=== PATIENT | male | born 1995 | race Two or more races ===

== ENCOUNTER 2017-12-03 02:08 | Emergency (ER) | payer OTHER ==
[~2017-12-03] VITALS: Ht 172.7 cm; Wt 68.0 kg
[2017-12-03] MEDS ORDERED: KETO10TA2 PO (09:32)
[2017-12-03] MEDS ORDERED: ZANTAC150 MG PO (09:32)
[2017-12-03] MEDS ORDERED: CIPRO500 MG PO (09:32)
== END 2017-12-03 09:15 | disposition home or self-care (01) ==
LOC: ER 02:08
DX: N20.0 Calculus of kidney (principal); R10.31 Right lower quadrant pain